=== PATIENT | female | born 1985 | race Caucasian/White ===

== ENCOUNTER 2020-12-19 11:27 | Emergency (ER) | payer BC ==
[~2020-12-19] VITALS: Ht 154.9 cm; Wt 70.0 kg
[2020-12-19] MEDS ORDERED: METOPROLOL TARTRATE 25MG TABLET PO ONE (12:30)
[2020-12-19 13:00] VITALS: BP 148/86
== END 2020-12-19 13:20 | disposition home or self-care (01) ==
LOC: ER 11:27
DX: I16.0 Hypertensive urgency (principal); R20.2 Paresthesia of skin; Z91.14 Patient's other noncompliance with medication regimen
CPT/HCPCS: 99282

== ENCOUNTER → 2021-01-23 | Outpatient (CLI) | payer BC ==
[2021-01-23 11:53] LABS: CHLORIDE 105 mEq/L (98-107)
[2021-01-23 11:54] LABS: BASOPHILS % 0.7 % (0.0-2.0); EOSINOPHILS % 2.4 % (0.0-5.0); HEMATOCRIT. 37.3 % (36.0-48.0); HEMOGLOBIN. 12.9 g/dL (12.0-16.0); LYMPHOCYTES % 27.1 % (20.0-50.0); MEAN CORPUSCULAR HEMOGLOBIN 30.2 pg (28.0-32.0); MEAN CORPUSCULAR VOLUME 87.6 fL (81.0-99.0); MEAN PLATELET VOLUME 7.3 fl (7.4-10.4); MONOCYTES % 7.6 % (2.0-8.0); NEUTROPHILS % 62.2 % (40.0-76.0); PLATELET 386 x1000/uL (130-400); RED BLOOD CELL COUNT 4.26 mill/uL (4.2-5.4); RED CELL DISTRIBUTION WIDTH 13.2 % (11.6-14.6)
[2021-01-23 11:59] LABS: TOTAL IRON BINDING CAPACITY 343 ug/dL (250-450)
[2021-01-23 12:01] LABS: LDL CHOLESTEROL 97 mg/dL (5-100)
[2021-01-23 12:02] LABS: HDL CHOLESTEROL 51 mg/dL (40-59)
== END | disposition home or self-care (01) ==
LOC: LAB 11:26
PROVIDERS: ATTEND Internal Medicine
DX: I10 Essential (primary) hypertension (principal); D64.9 Anemia, unspecified
CPT/HCPCS: 36415; 80053; 80061; 83540; 83550; 85025